=== PATIENT | male | born 1960 | race Caucasian/White ===

== ENCOUNTER 2018-10-13 10:54 | Outpatient (CLI) | payer OTHER ==
[2018-10-13] MEDS ORDERED: LATA2.5D3 EACHEYE (11:18)
[2018-10-13] MEDS ORDERED: TAMS-11 PO (11:18)
[2018-10-13 11:55] LABS: BASOPHILS # (AUTO) 0.04 x10^3/uL (0-0.1); BASOPHILS % (AUTO) 1 % (0-1); EOSINOPHILS # (AUTO) 0.13 x10^3/uL (0-0.4); EOSINOPHILS % (AUTO) 2 % (1-7); LYMPHOCYTES # (AUTO) 2.32 x10^3/uL (1-3.4); LYMPHOCYTES % (AUTO) 36 % (22-44); MD NO; MEAN CORPUSCULAR HEMOGLOBIN 32.6 pg (27.5-34.5); MEAN CORPUSCULAR HGB CONC 33.7 g/dL (33.2-36.2); MEAN CORPUSCULAR VOLUME 96.6 fL (81-97); MEAN PLATELET VOLUME 7.3 fL (7.4-10.4); MONOCYTES # (AUTO) 0.53 x10^3/uL (0.2-0.8); MONOCYTES % (AUTO) 8 % (2-9); NEUTROPHILS # (AUTO) 3.44 x10^3/uL (1.8-6.8); NEUTROPHILS % (AUTO) 53 % (42-75); PLATELET COUNT 348 x10^3/uL (130-400); RED BLOOD COUNT 4.97 x10^6/uL (4.38-5.82); RED CELL DISTRIBUTION WIDTH 12.8 % (9.4-14.8)
[2018-10-13 12:57] LABS: CALCIUM 9.2 mg/dL (8.5-10.1); CHLORIDE 107 mmol/L (98-107); CREATININE 1.14 mg/dL (0.7-1.3)
[2018-10-13 13:07] LABS: ANION GAP 6 mmol/L (5-15)
[2018-10-26] MEDS ORDERED: OXYC5CAP2 PO (12:26)
== END 2018-10-13 23:59 | disposition home or self-care (01) ==
LOC: STAR 10:54
PROVIDERS: ATTEND Orthopaedic Surgery
DX: Z01.818 Encounter for other preprocedural examination (principal); R94.31 Abnormal electrocardiogram [ECG] [EKG]; Z96.651 Presence of right artificial knee joint; Z95.0 Presence of cardiac pacemaker
CPT/HCPCS: 36415; 80048; 85025; 87081; 87147; 93005

== ENCOUNTER 2018-10-25 10:16 | Inpatient (IN) | payer OTHER ==
[~2018-10-25] VITALS: Ht 185.4 cm; Wt 103.9 kg
[2018-10-26 11:50] VITALS: BP 118/81
== END 2018-10-26 12:41 | disposition home or self-care (01) | DRG 468 ==
LOC: ORIP 10:55 → 4NOR 17:20 → DCLOUNGE 10-26 12:23
PROVIDERS: ADMIT Orthopaedic Surgery; ATTEND Orthopaedic Surgery
PROC: 0SPC0JZ Removal of Synthetic Substitute from Right Knee Joint, Open Approach (ICD-10-PCS; principal; 2018-10-25)
PROC: 0SRC069 Replacement of Right Knee Joint with Oxidized Zirconium on Polyethylene Synthetic Substitute, Cemented, Open Approach (ICD-10-PCS; 2018-10-25)
PROC: 3E0T3BZ Introduction of Anesthetic Agent into Peripheral Nerves and Plexi, Percutaneous Approach (ICD-10-PCS; 2018-10-25)
DX: T84.032A Mechanical loosening of internal right knee prosthetic joint, initial encounter (principal); T84.84XA Pain due to internal orthopedic prosthetic devices, implants and grafts, initial encounter; M65.9 Synovitis and tenosynovitis, unspecified; Y83.8 Other surgical procedures as the cause of abnormal reaction of the patient, or of later complication, without mention of misadventure at the time of the procedure; Y92.89 Other specified places as the place of occurrence of the external cause
CPT/HCPCS: C1713; G0378; J0171; J0690; J1100; J1885; J2250; J2405; J2704; J2795; J3010; J3370; C1776; J0360; J2175; J7040; J7120